=== PATIENT | female | born 1950 | race Caucasian/White ===

== ENCOUNTER 2019-03-10 14:46 | Outpatient (CLI) | payer MEDICARE, OTHER ==
--- NOTE | 2019-03-10 15:43 | MRI ---
MRI Cervical spine without contrast: HISTORY: Cervical radiculitis. Patient complains of chronic neck pain. COMPARISON: None FINDINGS: The craniocervical junction is unremarkable. No significant cord signal abnormality. Paravertebral soft tissues have a normal appearance and normal signal intensity. Multilevel degenerative changes are seen in the cervical spine. There is straightening of the normal cervical lordotic curvature. There is trace anterolisthesis of C7 on T1 likely due to facet degenerative changes at this level. C1-2:No significant stenosis. C2-3: No disc bulge or disc herniation is seen. Facet degenerative changes are seen on the left which does result in mild to moderate left-sided neural foraminal narrowing. Central spinal canal and right neural foramen are patent. C3-4: There is a mild disc osteophyte complex present which slightly effaces the ventral subarachnoid space. Mild facet degenerative changes are seen. Moderate bilateral neural foraminal narrowing is seen. C4-5: There is loss of intervertebral disc height. Mild disc osteophyte complex is present. Facet hyp ertrophic changes are noted. There is suggestion of uncinate process hypertrophy. Moderate to severe bilateral neural foraminal narrowing is present with mild generalized narrowing of the central spinal canal. C5-6: There is loss of intervertebral disc height. There is suggestion of trace retrolisthesis of C5 on C6. Facet degenerative changes are present at this level. There is moderate bilateral neural foraminal narrowing with mild generalized narrowing of the central spinal canal. C6-7: There is loss of intervertebral disc height. There is a broad-based disc osteophyte complex pre sent. There is moderate narrowing of the central spinal canal with mild to moderate right and moderate left-sided neural foraminal narrowing. C7-T1: Facet degenerative changes seen this level. There is trace anterolisthesis of C7 on T1 as ment ioned above. No significant disc bulge is present. There is mild narrowing of the central spinal canal. Neural foramina are patent. IMPRESSION: Multilevel degenerative changes in the cervical spine.
== END 2019-03-10 14:47 | disposition home or self-care (01) ==
LOC: SCSMRI 14:46
PROVIDERS: ATTEND Orthopaedic Surgery Hand Surgery
DX: M48.02 Spinal stenosis, cervical region (principal); M47.22 Other spondylosis with radiculopathy, cervical region; M47.813 Spondylosis without myelopathy or radiculopathy, cervicothoracic region
CPT/HCPCS: 72141

== ENCOUNTER 2022-08-30 21:08 | Inpatient (IN) | payer MEDICARE, OTHER ==
[2022-08-31 00:54] VITALS: BMI 44.7
[2022-08-31] MEDS ORDERED: Ondansetron PF 4 MG/2 ML Vial IVP PRN (01:24)
[2022-08-31] MEDS ORDERED: Diltiazem 125 MG in Sodium Chloride 0.9% 100 ML IVPB SCH (02:00)
[2022-08-31 02:38] LABS: Hemoglobin 12.8 g/dL (12.0-16.0); Mean Corpuscular HGB CONC 33.4 g/dL (32.0-36.0); Mean Corpuscular Hemoglobin 32.1 pg (27.0-31.0); Mean Platelet Volume 8.4 fL (7.4-10.4); Platelet Count 221 10x3/uL (130-400); RBC Distribution Width 12.9 % (11.5-14.5); Red Blood Cell (RBC) Count 3.98 mill/uL (4.20-5.40); White Blood Cell (WBC) Count 14.8 10x3/uL (4.8-10.8)
[2022-08-31 02:39] LABS: Troponin I Less than 0.010 ng/mL (< 0.028)
[2022-08-31 03:28] LABS: Band 1 % (5-11); Eosinophils 1 % (0-10); Lymphocytes 44 % (21-51); MDiff Complete? YES; Metamyelocyte 1 % (0-0); Monocytes 4 % (0-10); Neutrophil 49 % (42-75)
[2022-08-31 04:55] LABS: Albumin 3.4 g/dL (3.4-4.8); Chloride 112 mmol/L (98-107); Potassium 3.9 mmol/L (3.5-5.1)
[2022-08-31 04:56] LABS: Calcium 8.4 mg/dL (7.8-10.44); Glucose 121 mg/dL (83-110); Sodium 141 mmol/L (136-145)
[2022-08-31 04:58] LABS: Anion Gap 16 mmol/L (10-20); Carbon Dioxide 17 mmol/L (23-31); Protein, Total 5.7 g/dL (5.8-8.1)
[2022-08-31 04:59] LABS: Bilirubin, Total 0.4 mg/dL (0.2-1.2)
[2022-08-31 05:00] LABS: Alkaline Phosphatase 68 U/L (40-110); Calc. Creatinine Clearance 126 mL/min (70-130); Estimated GFR 79
[2022-08-31 05:01] LABS: BUN (Urea Nitrogen) 25 mg/dL (9.8-20.1)
[2022-08-31 05:03] LABS: ALT (SGPT) 119 U/L (8-55); AST (SGOT) 72 U/L (5-34); Bilirubin, Direct 0.2 mg/dL (0.1-0.3)
[2022-08-31] MEDS: Diltiazem 125 MG in Sodium Chloride 0.9% 100 ML IVPB SCH ×2 (05:37→19:51)
[2022-08-31 06:20] LABS: Troponin I Less than 0.010 ng/mL (< 0.028)
[2022-08-31] MEDS ORDERED: Furosemide 20 MG/2 ML VIAL SLOW IVP SCH (07:15)
[2022-08-31] MEDS: Enoxaparin 120 MG/0.8 ML SYRINGE SC SCH ×2 (08:53→20:32)
[2022-08-31] MEDS ORDERED: Iopamidol 370 76% 100 ML VIAL ONE (11:35)
[2022-08-31] MEDS: Acetaminophen 325 MG TAB PO PRN (15:27)
[2022-08-31] MEDS: Furosemide 20 MG/2 ML VIAL SLOW IVP SCH (15:27)
[2022-08-31] MEDS ORDERED: Furosemide 20 MG TAB PO PRN (16:27)
[2022-08-31] MEDS ORDERED: Amiodarone 150 MG in Dextrose 5% in Water 100 ML IVPB SCH (18:15)
[2022-08-31] MEDS: Amiodarone 450 MG in Dextrose 5% in Water 250 ML IVPB SCH (19:54)
[2022-09-01] MEDS: Amiodarone 450 MG in Dextrose 5% in Water 250 ML IVPB SCH (03:44)
[2022-09-01 05:04] LABS: Mean Corpuscular HGB CONC 32.9 g/dL (32.0-36.0); Mean Corpuscular Hemoglobin 31.5 pg (27.0-31.0); Mean Corpuscular Volume 95.7 fl (78.0-98.0); Mean Platelet Volume 8.7 fL (7.4-10.4); Platelet Count 195 10x3/uL (130-400); RBC Distribution Width 12.9 % (11.5-14.5); Red Blood Cell (RBC) Count 4.13 mill/uL (4.20-5.40); White Blood Cell (WBC) Count 13.7 10x3/uL (4.8-10.8)
[2022-09-01 05:21] LABS: Anion Gap 13 mmol/L (10-20); BUN (Urea Nitrogen) 22 mg/dL (9.8-20.1); Calc. Creatinine Clearance 130 mL/min (70-130); Calcium 8.8 mg/dL (7.8-10.44); Carbon Dioxide 23 mmol/L (23-31); Chloride 105 mmol/L (98-107); Estimated GFR 85; Glucose 100 mg/dL (83-110); Magnesium 1.9 mg/dL (1.6-2.6); Potassium 3.7 mmol/L (3.5-5.1); Sodium 137 mmol/L (136-145)
[2022-09-01 05:24] LABS: ALT (SGPT) 119 U/L (8-55); AST (SGOT) 48 U/L (5-34); Albumin 3.5 g/dL (3.4-4.8); Alkaline Phosphatase 66 U/L (40-110); Bilirubin, Direct 0.3 mg/dL (0.1-0.3); Bilirubin, Total 0.6 mg/dL (0.2-1.2); Cardiac Risk 3.6 (Less than 4.5); Cholesterol 174 mg/dl (< 200 Desired); HDL Cholesterol 49 mg/dL (>60 Neg Risk); LDL Cholesterol, Calculated 95 mg/dL; Protein, Total 5.9 g/dL (5.8-8.1); Triglycerides 149 mg/dL (Less than 150)
[2022-09-01] MEDS: Furosemide 20 MG/2 ML VIAL SLOW IVP SCH ×2 (05:42→15:09)
[2022-09-01] MEDS: Levothyroxine Sodium 88 MCG TAB PO SCH (05:52)
[2022-09-01 06:30] LABS: Eosinophils 6 % (0-10); Lymphocytes 38 % (21-51); MDiff Complete? YES; Monocytes 7 % (0-10); Neutrophil 49 % (42-75); Platelet Morphology Comment Appears Adequate; Polychromasia SLIGHT = 2-3 cells (100X) (0-2/hpf)
[2022-09-01] MEDS: Carvedilol 3.125 MG TAB PO SCH ×2 (09:31→18:40)
[2022-09-01] MEDS: Enoxaparin 120 MG/0.8 ML SYRINGE SC SCH ×2 (09:31→20:30)
[2022-09-01] MEDS: Sacubitril 24MG/Valsartan 26 MG TAB PO SCH (20:30)
[2022-09-02 05:12] LABS: Hemoglobin 13.9 g/dL (12.0-16.0); Mean Corpuscular HGB CONC 33.9 g/dL (32.0-36.0); Mean Corpuscular Hemoglobin 32.2 pg (27.0-31.0); Mean Corpuscular Volume 94.9 fl (78.0-98.0); Mean Platelet Volume 8.7 fL (7.4-10.4); Platelet Count 194 10x3/uL (130-400); RBC Distribution Width 12.7 % (11.5-14.5); Red Blood Cell (RBC) Count 4.31 mill/uL (4.20-5.40); White Blood Cell (WBC) Count 15.8 10x3/uL (4.8-10.8)
[2022-09-02 05:29] LABS: Anion Gap 13 mmol/L (10-20); BUN (Urea Nitrogen) 23 mg/dL (9.8-20.1); Calc. Creatinine Clearance 125 mL/min (70-130); Calcium 8.8 mg/dL (7.8-10.44); Carbon Dioxide 27 mmol/L (23-31); Chloride 101 mmol/L (98-107); Estimated GFR 81; Glucose 115 mg/dL (83-110); Magnesium 1.8 mg/dL (1.6-2.6); Potassium 3.4 mmol/L (3.5-5.1); Sodium 138 mmol/L (136-145)
[2022-09-02] MEDS: Furosemide 20 MG/2 ML VIAL SLOW IVP SCH ×2 (05:48→14:28)
[2022-09-02] MEDS: Levothyroxine Sodium 88 MCG TAB PO SCH (05:48)
[2022-09-02 06:41] LABS: Band 1 % (5-11); Eosinophils 4 % (0-10); Lymphocytes 46 % (21-51); MDiff Complete? YES; Monocytes 4 % (0-10); Neutrophil 45 % (42-75)
[2022-09-02] MEDS ORDERED: Potassium Chloride 20 MEQ TAB PO SCH (08:15)
[2022-09-02] MEDS: Amiodarone 450 MG in Dextrose 5% in Water 250 ML IVPB SCH (08:55)
[2022-09-02] MEDS: Enoxaparin 120 MG/0.8 ML SYRINGE SC SCH (08:56)
[2022-09-02] MEDS: Sacubitril 24MG/Valsartan 26 MG TAB PO SCH ×2 (08:56→22:16)
[2022-09-02] MEDS: Carvedilol 3.125 MG TAB PO SCH ×2 (08:57→18:34)
[2022-09-02] MEDS: Amiodarone 200 MG TAB PO SCH ×2 (10:00→22:16)
[2022-09-02] MEDS: Acetaminophen 325 MG TAB PO PRN ×3 (11:35→22:15)
[2022-09-02] MEDS ORDERED: diphenhydrAMINE 30 GM TUBE TOP PRN (14:08)
[2022-09-02] MEDS ORDERED: Communication Order-Pharmacy FS SCH (15:15)
[2022-09-03] MEDS: Levothyroxine Sodium 88 MCG TAB PO SCH (05:52)
[2022-09-03] MEDS: Sacubitril 24MG/Valsartan 26 MG TAB PO SCH ×2 (05:53→22:31)
[2022-09-03] MEDS: Carvedilol 3.125 MG TAB PO SCH ×2 (05:53→17:47)
[2022-09-03] MEDS: Amiodarone 200 MG TAB PO SCH ×2 (05:53→22:31)
[2022-09-03] MEDS ORDERED: Sodium Chloride 0.9% 1,000 ML IV SCH ×2 (06:00→12:03)
[2022-09-03 08:56] LABS: Anion Gap 13 mmol/L (10-20); BUN (Urea Nitrogen) 20 mg/dL (9.8-20.1); Calc. Creatinine Clearance 118 mL/min (70-130); Calcium 8.8 mg/dL (7.8-10.44); Carbon Dioxide 25 mmol/L (23-31); Chloride 104 mmol/L (98-107); Estimated GFR 80; Glucose 116 mg/dL (83-110); Potassium 4.1 mmol/L (3.5-5.1); Sodium 138 mmol/L (136-145)
[2022-09-03] MEDS ORDERED: Heparin 10,000 UNITS/ 10 ML VIAL ONE (09:49)
[2022-09-03] MEDS ORDERED: Lidocaine 1% (PF) 30 ML VIAL ONE (09:50)
[2022-09-03] MEDS ORDERED: Iopamidol 370 76% 100 ML VIAL ONE (09:59)
[2022-09-03] MEDS ORDERED: Midazolam HCl 2 mg/2 ml Vial ONE (10:35)
[2022-09-03] MEDS ORDERED: FENTANYL 50 MCG/ML 1 ML VIAL ONE (10:36)
[2022-09-03] MEDS ORDERED: Protamine Sulfate 50 MG/5 ML VIAL ONE (11:50)
[2022-09-03] MEDS ORDERED: Nitroglycerin 0.4 MG TAB (25 Tab Bottle) SL PRN (12:02)
[2022-09-03] MEDS ORDERED: Sodium Chloride 0.9% 200 ML IV PRN (12:02)
[2022-09-03] MEDS ORDERED: Acetaminophen/Codeine 30-300mg Tablet PO PRN ×2 (12:02)
[2022-09-03] MEDS: Acetaminophen 325 MG TAB PO PRN (12:45)
[2022-09-03] MEDS: Furosemide 40 MG TAB PO SCH (13:21)
[2022-09-04] MEDS: Levothyroxine Sodium 88 MCG TAB PO SCH (05:55)
[2022-09-04] MEDS: Furosemide 40 MG TAB PO SCH (08:40)
[2022-09-04] MEDS: Sacubitril 24MG/Valsartan 26 MG TAB PO SCH (08:40)
[2022-09-04] MEDS: Carvedilol 3.125 MG TAB PO SCH (08:40)
[2022-09-04] MEDS: Amiodarone 200 MG TAB PO SCH (08:40)
[2022-09-04] MEDS: Acetaminophen 325 MG TAB PO PRN (11:47)
[2022-09-04 11:57] VITALS: BP 128/66; TEMP 98.3
[2022-09-05] MEDS ORDERED: Apixaban 5 MG TAB PO SCH (09:00)
[2022-09-15] MEDS ORDERED: Amiodarone 200 MG TAB PO SCH (09:00)
[2022-09-29] MEDS ORDERED: Amiodarone 200 MG TAB PO SCH (09:00)
== END 2022-09-04 13:30 | disposition home or self-care (01) | DRG 286 ==
LOC: 2NO 21:08
PROVIDERS: ADMIT Internal Medicine; ATTEND Internal Medicine
PROC: 4A023N7 Measurement of Cardiac Sampling and Pressure, Left Heart, Percutaneous Approach (ICD-10-PCS; principal; 2022-08-30)
PROC: B2111ZZ Fluoroscopy of Multiple Coronary Arteries using Low Osmolar Contrast (ICD-10-PCS; 2022-08-30)
PROC: B2151ZZ Fluoroscopy of Left Heart using Low Osmolar Contrast (ICD-10-PCS; 2022-08-30)
DX: I48.91 Unspecified atrial fibrillation (principal); I50.23 Acute on chronic systolic (congestive) heart failure; J96.90 Respiratory failure, unspecified, unspecified whether with hypoxia or hypercapnia; Z20.822 Contact with and (suspected) exposure to COVID-19; E03.9 Hypothyroidism, unspecified; M54.50 Low back pain, unspecified; G89.29 Other chronic pain; E66.9 Obesity, unspecified; Z96.651 Presence of right artificial knee joint; D72.829 Elevated white blood cell count, unspecified; I08.3 Combined rheumatic disorders of mitral, aortic and tricuspid valves; M19.90 Unspecified osteoarthritis, unspecified site; Z79.899 Other long term (current) drug therapy; Z79.890 Hormone replacement therapy; Z82.49 Family history of ischemic heart disease and other diseases of the circulatory system; Z68.35 Body mass index [BMI] 35.0-35.9, adult
CPT/HCPCS: 36415; 71275; 80048; 80061; 80076; 83605; 83735; 83880; 84443; 84484; 85025; 85347; 93005; 93010; 93306; 93458; 97139; 99152; C1769; J0282; J1644; J1650; J1940; J2001; J2250; J2720; J3010; J3490; J7050; J7070; Q9967

== ENCOUNTER 2023-01-30 12:08 | Outpatient (CLI) | payer MEDICARE, OTHER | END 2023-01-30 12:09 | disposition home or self-care (01) | LOC: SCSMRI 12:08 | PROVIDERS: ATTEND Specialist | DX: M54.50 Low back pain, unspecified (principal); M51.36 Other intervertebral disc degeneration, lumbar region; M51.37 Other intervertebral disc degeneration, lumbosacral region; M51.35 Other intervertebral disc degeneration, thoracolumbar region | CPT/HCPCS: 72148 ==

== ENCOUNTER 2023-04-18 08:02 | Day surgery (SDC) | payer MEDICARE, OTHER ==
[2023-04-16 14:41] VITALS: BMI 40.3
[2023-04-18 09:26] LABS: #Basophils 0.1 thou/uL (0.0-0.2); #Eosinphils 0.3 thou/uL (0.0-0.7); #Monocytes 0.9 thou/uL (0.11-0.59); #Neutrophils 4.8 thou/uL (1.40-6.50); %Basophils 0.8 % (0.0-1.0); %Eosinophils 2.3 % (0.0-10.0); %Lymphocytes 44.5 % (21.0-51.0); Hematocrit 40.6 % (36.0-47.0); Hemoglobin 13.2 g/dL (12.0-16.0); Mean Corpuscular HGB CONC 32.5 g/dL (32.0-36.0); Mean Corpuscular Hemoglobin 30.6 pg (27.0-31.0); Mean Corpuscular Volume 94.2 fl (78.0-98.0); Mean Platelet Volume 9.8 fL (7.4-10.4); Platelet Count 185 10x3/uL (130-400); RBC Distribution Width 13.2 % (11.5-14.5); Red Blood Cell (RBC) Count 4.31 mill/uL (4.20-5.40); White Blood Cell (WBC) Count 10.8 10x3/uL (4.8-10.8)
[2023-04-18 09:47] LABS: Anion Gap 13 mmol/L (10-20); BUN (Urea Nitrogen) 29 mg/dL (9.8-20.1); Calc. Creatinine Clearance 69 mL/min (70-130); Calcium 9.7 mg/dL (7.8-10.44); Carbon Dioxide 25 mmol/L (23-31); Chloride 107 mmol/L (98-107); Estimated GFR 44; Glucose 102 mg/dL (83-110); Sodium 141 mmol/L (136-145)
[2023-04-18] MEDS ORDERED: Bupivacaine 0.25% HCL 30 ML VIAL ONE (10:32)
[2023-04-18] MEDS ORDERED: EPINEPHrine 1 MG/ML VIAL ONE (10:32)
[2023-04-18] MEDS ORDERED: fentaNYL PF 100 MCG/2 ML SYRINGE ONE (11:16)
[2023-04-18] MEDS ORDERED: SUGAMMADEX SODIUM 200 MG/2 ML VIAL ONE (11:16)
[2023-04-18] MEDS ORDERED: Midazolam HCl 2 mg/2 ml Vial ONE (11:16)
[2023-04-18] MEDS ORDERED: Sodium Chloride 0.9% 100 ML ONE (11:21)
[2023-04-18] MEDS ORDERED: CEFAZOLIN 2 GM VIAL ONE (11:21)
[2023-04-18] MEDS ORDERED: Glycopyrrolate 0.2 MG/ML 5 ML SYRINGE ONE (11:36)
[2023-04-18] MEDS ORDERED: Ondansetron PF 4 MG/2 ML Vial ONE (11:36)
[2023-04-18] MEDS ORDERED: Lidocaine 1% PF 5 ML VIAL ONE (11:36)
[2023-04-18] MEDS ORDERED: Dexamethasone 20 MG/5 ML VIAL ONE (11:36)
[2023-04-18] MEDS ORDERED: ePHEDrine Sulfate 50 MG/10 ML VIAL ONE (11:36)
[2023-04-18] MEDS ORDERED: NEOSTIGMINE 3 MG/3 ML SYR 3 MG/3 ML SYRINGE ONE (11:36)
[2023-04-18] MEDS ORDERED: Rocuronium Bromide 10 MG/ML (10ML VIAL) ONE (11:36)
[2023-04-18] MEDS ORDERED: PROPOFOL 200 MG/20 ML VIAL ONE (11:36)
[2023-04-18] MEDS ORDERED: HYDROmorphone 0.5 MG/0.5 ML SYRINGE ONE ×3 (13:13→13:30)
[2023-04-18] MEDS ORDERED: fentaNYL 50 mcg/mL 1 mL Vial ONE ×2 (14:03→14:18)
[2023-04-18] MEDS ORDERED: HYDROcodone/Acetaminophen 5/325 mg Tablet ONE (15:29)
== END 2023-04-18 16:30 | disposition home or self-care (01) ==
LOC: SDC 08:02
PROVIDERS: ATTEND Surgery
PROC: 0WUF0JZ Supplement Abdominal Wall with Synthetic Substitute, Open Approach (ICD-10-PCS; principal; 2023-04-18)
DX: K43.9 Ventral hernia without obstruction or gangrene (principal); E03.9 Hypothyroidism, unspecified; J30.2 Other seasonal allergic rhinitis; Z79.890 Hormone replacement therapy; Z79.899 Other long term (current) drug therapy; Z96.651 Presence of right artificial knee joint; Z98.890 Other specified postprocedural states
CPT/HCPCS: 49593; 80048; 85025; C1781; J0171; J3010; J1100; J1170; J2250; J2405; J2704; J3490; S0020

== ENCOUNTER 2025-02-02 13:28 | Outpatient (CLI) | payer MEDICARE, OTHER | END 2025-02-02 13:29 | disposition home or self-care (01) | LOC: BICRAD 13:28 | PROVIDERS: ATTEND Podiatrist | DX: M19.071 Primary osteoarthritis, right ankle and foot (principal); Q66.222 Congenital metatarsus adductus, left foot; M19.072 Primary osteoarthritis, left ankle and foot ==